=== PATIENT | male | born 1930 | race Caucasian/White ===

== ENCOUNTER 2017-06-24 09:12 | Outpatient (CLI) | payer MEDICARE, OTHER ==
--- NOTE | 2017-06-24 11:53 | ULT ---
RENAL ULTRASOUND: HISTORY: Acute cystitis with hematuria. COMPARISON: None. TECHNIQUE: Sagittal and transverse imaging was performed. FINDINGS: Bilaterally, no hydronephrosis. The right kidney measures 10.5 x 4.5 x 4.8 cm. The left kidney kolby ures 10.2 x 5.2 x 5 cm. In the lower pole left kidney there is a hypoechoic focus measuring 0.9 x 1 x 1 cm. Complex cyst versus solid lesion are differential considerations. The urinary bladder is unremarkable. IMPRESSION: Hypoechoic focus in the lower pole left kidney. Given the size of the lesion, a follow-up ultrasound in one year is recommended. POS: BALAJI
== END 2017-06-24 09:13 | disposition home or self-care (01) ==
LOC: ULT 09:12
PROVIDERS: ATTEND Urology
DX: N30.01 Acute cystitis with hematuria (principal); N28.89 Other specified disorders of kidney and ureter
CPT/HCPCS: 76770

== ENCOUNTER 2017-06-26 10:57 | Outpatient (CLI) | payer MEDICARE, OTHER ==
[2017-06-26 13:10] LABS: Anion Gap 12 mmol/L (10-20); BUN (Urea Nitrogen) 20 mg/dL (8.4-25.7); Calc. Creatinine Clearance 0 mL/min (70-130); Calcium 9.6 mg/dL (7.8-10.44); Carbon Dioxide 27 mmol/L (23-31); Chloride 105 mmol/L (98-107); Estimated GFR-MDRD 59; Glucose 91 mg/dL (83-110); Potassium 4.9 mmol/L (3.5-5.1); Sodium 139 mmol/L (136-145)
--- NOTE | 2017-06-27 19:08 | EKG ---
Test Reason : Blood Pressure : / mmHG Vent. Rate : 079 BPM Atrial Rate : 079 BPM P-R Int : 338 ms QRS Dur : 094 ms QT Int : 380 ms P-R-T Axes : 036 063 045 degrees QTc Int : 435 ms Electronic atrial pacemaker Anterior infarct , age undetermined Abnormal ECG When compared with ECG of 16-MAY-2016 06:33, Electronic atrial pacemaker has replaced Electronic ventricular pacemaker Confirmed by BRYANT FULTON, DR. Tejada ([id number]) on 06/27/2017 7:08:06 PM Referred By: EMANUEL Confirmed By:DR. Mallory HURTADO MD
== END 2017-06-26 10:58 | disposition home or self-care (01) ==
LOC: LABBT 10:57
PROVIDERS: ATTEND Specialist
DX: Z01.818 Encounter for other preprocedural examination (principal); K40.90 Unilateral inguinal hernia, without obstruction or gangrene, not specified as recurrent; R94.31 Abnormal electrocardiogram [ECG] [EKG]; Z95.0 Presence of cardiac pacemaker
CPT/HCPCS: 80048; 93005; 93010

== ENCOUNTER 2017-06-30 05:45 | Day surgery (SDC) | payer MEDICARE, OTHER ==
[2017-06-26 11:10] VITALS: BMI 23.7
[2017-06-30] MEDS ORDERED: Ketorolac Tromethamine 30 MG/ML VIAL ONE (06:12)
[2017-06-30] MEDS ORDERED: CEFAZOLIN/Water 2 GM/20 ML SYRINGE ONE (06:12)
[2017-06-30 06:24] LABS: #Basophils 0.1 thou/uL (0.0-0.2); #Eosinphils 0.2 thou/uL (0.0-0.7); #Monocytes 0.7 thou/uL (0.11-0.59); #Neutrophils 3.7 thou/uL (1.40-6.50); %Eosinophils 3.9 % (0.0-10.0); %Lymphocytes 17.5 % (21.0-51.0); %Monocytes 11.8 % (0.0-10.0); %Neutrophils 65.8 % (42.0-75.0); Hemoglobin 14.7 g/dL (14.0-18.0); Mean Corpuscular HGB CONC 33.3 g/dL (32.0-36.0); Mean Corpuscular Hemoglobin 30.2 pg (27.0-31.0); Mean Corpuscular Volume 90.7 fl (80.0-94.0); Mean Platelet Volume 6.8 fL (7.4-10.4); Platelet Count 140 thou/uL (130-400); RBC Distribution Width 13.5 % (11.5-14.5); Red Blood Cell (RBC) Count 4.87 mill/uL (4.70-6.10); White Blood Cell (WBC) Count 5.6 thou/uL (4.8-10.8)
[2017-06-30] MEDS ORDERED: Bupivacaine HCl 0.5%/Epinephrine 1:200,000/PF 30 ml Vial ONE (06:29)
[2017-06-30] MEDS ORDERED: Bupivacaine/Epinephrine 0.25% 30 ML VIAL ONE (06:46)
[2017-06-30] MEDS ORDERED: Fentanyl 250 MCG/5 ML VIAL ONE (07:25)
[2017-06-30] MEDS ORDERED: HYDROcodone/Acetaminophen 5/325 mg Tablet ONE (10:49)
--- NOTE | 2017-06-30 14:54 | OP ---
DATE OF PROCEDURE: 06/30/2017 PREOPERATIVE DIAGNOSIS: Left inguinal hernia. POSTOPERATIVE DIAGNOSIS: Left inguinal hernia, pantaloon. OPERATION PERFORMED: Left inguinal hernia repair with large mesh, patch and plug. SURGEON: Krishan Royal M.D. ANESTHESIA: General with laryngeal mask airway. INDICATIONS: The patient is an 87-year-old white male. He presents with an obvious left inguinal he rnia and is taken to the operating room at this time for repair. DESCRIPTION OF OPERATION: Informed consent was obtained. The patient was taken to the operating jordan m where general anesthesia was obtained with the patient in supine position. Abdomen and groin were prepped with ChloraPrep and draped in sterile fashion. Local anesthetic was infiltrated with 0.25% M arcaine with epinephrine. Oblique left inguinal incision was created and dissection was carried thro [facility] skin and subcutaneous tissue. Dissection was carried down to the fascia, which was opened parall el to its fibers, so as to open the external ring. Careful dissection was carried out within the ing uinal canal to isolate the spermatic cord, which was controlled with a Rivka drain. Dissection was carried out within the canal, which identified an obvious direct defect on the medial aspect of the inferior epigastric vessels. This is about a centimeter in diameter and there was a significant volu me of fatty tissue bulging through this. This was dissected circumferentially at its base and the co ntents were inverted. The defect was closed with 2 [id number] sutures of 2-0 Vicryl. There was also an obvious indirect hernia on the lateral aspect of the cord structures. This hernia sac was dissected free from cord structures and dissected back to its opening at the internal ring. A large mesh plug was obtained and the apex was secured to the apex of the hernia sac and the complex was inverted in the preperitoneal space and it was secured to surrounding fascia with 2 interrupted sutures of 2-0 Vicryl. Mesh patch was then obtained, trimmed to appropriate size, placed within the floor of the inguinal canal, and secured in place with 5 interrupted sutures of 2-0 Vicryl. The fasc ia was then closed with a running suture of 3-0 Vicryl and the remainder of the wound closed in layer s with 3-0 and 4-0 Monocryl suture. Additional local anesthetic was infiltrated during closure. Hollis mabond was placed externally. There were no complications. Patient tolerated the procedure well and was taken to recovery room in stable condition.
== END 2017-06-30 11:48 | disposition home or self-care (01) ==
LOC: SDC 05:45
PROVIDERS: ATTEND Specialist
PROC: 0YU60JZ Supplement Left Inguinal Region with Synthetic Substitute, Open Approach (ICD-10-PCS; principal; 2017-06-30)
DX: K40.90 Unilateral inguinal hernia, without obstruction or gangrene, not specified as recurrent (principal); I10 Essential (primary) hypertension; E78.00 Pure hypercholesterolemia, unspecified; Z79.82 Long term (current) use of aspirin; Z79.899 Other long term (current) drug therapy; Z87.891 Personal history of nicotine dependence; Z98.890 Other specified postprocedural states
CPT/HCPCS: 36415; 85025; C1781; J0131; J0670; J1885; J3010

== ENCOUNTER 2017-12-19 09:00 | Emergency (ER) | payer MEDICARE, OTHER ==
--- NOTE | 2017-12-19 09:49 | RAD ---
LEFT HAND 3 VIEWS: Date: 12/19/17 PROVIDED CLINICAL HISTORY: Left hand pain and swelling, status post injury. FINDINGS: There is no evidence for fracture or other acute osseous abnormality. If there is persistent clinical concern, conservative management and follow-up imaging are advised. IMPRESSION: As above. POS: BALAJI
== END 2017-12-19 10:48 | disposition home or self-care (01) ==
LOC: ERS 09:00
DX: M79.642 Pain in left hand (principal); E78.5 Hyperlipidemia, unspecified; F17.220 Nicotine dependence, chewing tobacco, uncomplicated; Z79.899 Other long term (current) drug therapy; Z79.82 Long term (current) use of aspirin

== ENCOUNTER → 2017-12-22 | Day surgery (SDC) | payer MEDICARE, OTHER ==
[2017-12-11 14:24] VITALS: BMI 24.6
[~2017-12-22] MED LIST: Bupivacaine 0.25% HCL 30 ML VIAL ONE; Bupivacaine/Epinephrine 0.25% 30 ML VIAL ONE; CEFAZOLIN/Water 2 GM/20 ML SYRINGE ONE; Fentanyl 100 MCG/2 ML VIAL ONE; Ketorolac Tromethamine 30 MG/ML VIAL ONE; Lidocaine 1% PF 5 ML VIAL ONE; Metoclopramide HCl 10 MG/2 ML VIAL ONE; Ondansetron HCl/PF 4 MG/2 ML Vial ONE; PROPOFOL 200 MG/20 ML VIAL ONE
--- NOTE | 2017-12-23 10:07 | OP ---
DATE OF PROCEDURE: 12/22/2017 PREOPERATIVE DIAGNOSIS: Right inguinal hernia. POSTOPERATIVE DIAGNOSES: Right inguinal hernia, indirect. OPERATION PERFORMED: Repair of indirect right inguinal hernia with mesh using a large mesh patch and plug. SURGEON: Krishan Royal M.D. ANESTHESIA: General endotracheal. INDICATIONS: The patient is an 87-year-old white male. He previously had a left inguinal hernia rep aired with good results. He subsequently developed a right inguinal hernia and he is taken to the op erating room at this time for repair. DESCRIPTION OF OPERATION: Informed consent was obtained. The patient is taken to the operating room where general endotracheal anesthesia obtained with the patient in supine position. Right inguinal area was trimmed of hair, prepped with ChloraPrep, and draped in sterile fashion. Local anesthetic w as infiltrated using 0.25% Marcaine with epinephrine and an oblique right inguinal incision was creat ed. Dissection was carried through skin and subcutaneous tissue. Dissection was carried down to the fascia which was opened parallel to its fibers so as to open the inguinal canal. The spermatic cord was dissected circumferentially and controlled with Rivka drain. The direct space was inspected a nd found to be without evidence of hernia. The cord was dissected and obvious indirect hernia sac wa s identified and dissected free from cord structures. It was dissected back to its opening at the in ternal ring. A large mesh plug was obtained and the apex was secured to the apex of the hernia sac a nd the complex was inverted in the preperitoneal space. It was secured in place with 2 interrupted s utures of 2-0 Vicryl. The mesh patch was obtained, trimmed to appropriate size, placed within the fl oor of the inguinal canal, and secured in place with several interrupted sutures of 2-0 Vicryl. The tails were of course secured lateral to the internal ring. The fascia was closed with a running sutu re of 3-0 Vicryl. Remainder of the wound closed in layers with 3-0 and 4-0 Monocryl. Dermabond was placed externally. Additional local anesthetic was infiltrated during closure. There were no compli cations. The patient tolerated the procedure well and was taken to recovery in stable condition.
== END ==
LOC: SDC 05:47
PROVIDERS: ATTEND Specialist
PROC: 0YU50JZ Supplement Right Inguinal Region with Synthetic Substitute, Open Approach (ICD-10-PCS; principal; 2017-12-22)
DX: K40.90 Unilateral inguinal hernia, without obstruction or gangrene, not specified as recurrent (principal); I10 Essential (primary) hypertension; E78.00 Pure hypercholesterolemia, unspecified; E11.9 Type 2 diabetes mellitus without complications; I48.91 Unspecified atrial fibrillation; Z87.891 Personal history of nicotine dependence; Z79.01 Long term (current) use of anticoagulants; Z79.84 Long term (current) use of oral hypoglycemic drugs; Z79.899 Other long term (current) drug therapy; Z95.5 Presence of coronary angioplasty implant and graft; Z95.2 Presence of prosthetic heart valve; Z98.890 Other specified postprocedural states
CPT/HCPCS: 49505; C1781; J0131; J1885; J2001; J2405; J2704; J2765; J3010; S0020

== ENCOUNTER 2018-03-18 08:41 | Emergency (ER) | payer MEDICARE, OTHER ==
--- NOTE | 2018-03-18 10:51 | ULT ---
RIGHT LOWER EXTREMITY VENOUS DOPPLER ULTRASOUND: DATE: 03/18/2018. COMPARISON: None. HISTORY: Swelling, edema, assess for DVT. TECHNIQUE: Multiplanar, mejia scale sonographic imaging of the venous structures of the right lower extremity obt ained with color flow and spectral analysis. FINDINGS: Right common femoral vein, greater saphenous vein, profunda femoral vein, femoral vein, popliteal vei n, and posterior tibial vein are patent. There is no evidence for deep venous thrombosis of the righ t lower extremity. There is a heterogeneously hypoechoic lesion measuring at least 4.2 x 2.8 x 4.9 cm in the poplitea l area. This heterogeneously hypoechoic lesion demonstrates no internal blood flow. There is a p robable linear band of decreased echogenicity extending from this into the calf. The most likely con sideration is a complex/hemorrhagic Mcelroy's cyst with rupture. IMPRESSION: No evidence for deep venous thrombosis of the right lower extremity. 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 Recommend followup imaging via ultrasound or MRI to document resolution. POS: BALAJI
== END 2018-03-18 11:03 | disposition home or self-care (01) ==
LOC: ERS 08:41
DX: S30.0XXA Contusion of lower back and pelvis, initial encounter (principal); S70.11XA Contusion of right thigh, initial encounter; M71.21 Synovial cyst of popliteal space [Baker], right knee; E78.5 Hyperlipidemia, unspecified; I48.91 Unspecified atrial fibrillation; Z87.891 Personal history of nicotine dependence; Z79.01 Long term (current) use of anticoagulants; Z79.899 Other long term (current) drug therapy; Z79.82 Long term (current) use of aspirin; X50.1XXA Overexertion from prolonged static or awkward postures, initial encounter

== ENCOUNTER 2018-03-24 10:35 | Outpatient (CLI) | payer MEDICARE, OTHER ==
[2018-03-24 11:57] LABS: Hemoglobin 13.2 g/dL (14.0-18.0); Mean Corpuscular Hemoglobin 31.1 pg (27.0-31.0); Mean Corpuscular Volume 91.6 fL (78.0-98.0); Mean Platelet Volume 7.2 fL (7.4-10.4); Platelet Count 178 thou/uL (130-400); RBC Distribution Width 12.7 % (11.5-14.5); Red Blood Cell (RBC) Count 4.24 mill/uL (4.70-6.10); White Blood Cell (WBC) Count 7.7 thou/uL (4.8-10.8)
[2018-03-24 12:13] LABS: Anion Gap 13 mmol/L (10-20); BUN (Urea Nitrogen) 20 mg/dL (8.4-25.7); Calc. Creatinine Clearance 0 mL/min (70-130); Calcium 9.4 mg/dL (7.8-10.44); Carbon Dioxide 25 mmol/L (23-31); Chloride 105 mmol/L (98-107); Estimated GFR-MDRD 65; Glucose 85 mg/dL (83-110); Potassium 4.3 mmol/L (3.5-5.1); Sodium 139 mmol/L (136-145)
--- NOTE | 2018-03-24 18:01 | EKG ---
Test Reason : Blood Pressure : / mmHG Vent. Rate : 062 BPM Atrial Rate : 062 BPM P-R Int : 000 ms QRS Dur : 096 ms QT Int : 414 ms P-R-T Axes : -10 069 074 degrees QTc Int : 420 ms Electronic atrial pacemaker with atrial pacing. 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
== END 2018-03-24 10:36 | disposition home or self-care (01) ==
LOC: LABBT 10:35
PROVIDERS: ATTEND Urology
DX: Z01.818 Encounter for other preprocedural examination (principal); R35.1 Nocturia; R35.0 Frequency of micturition; N40.1 Benign prostatic hyperplasia with lower urinary tract symptoms; N30.01 Acute cystitis with hematuria; R31.29 Other microscopic hematuria; N28.1 Cyst of kidney, acquired
CPT/HCPCS: 80048; 81001; 85027; 93005; 93010

== ENCOUNTER 2018-03-31 06:17 | Day surgery (SDC) | payer MEDICARE, OTHER ==
[2018-03-24 10:54] VITALS: BMI 23.7
[2018-03-31] MEDS ORDERED: Dexamethasone 4 mg/ml Vial ONE (07:35)
[2018-03-31] MEDS ORDERED: Levofloxacin 500 mg/D5W 100 ml Premix Bag ONE (07:35)
[2018-03-31] MEDS ORDERED: Fentanyl 100 MCG/2 ML VIAL ONE (09:42)
[2018-03-31] MEDS ORDERED: Furosemide 20 MG/2 ML VIAL ONE (10:46)
--- NOTE | 2018-03-31 17:12 | OP ---
DATE OF PROCEDURE: 03/31/2018 PREOPERATIVE DIAGNOSIS: BPH. POSTOPERATIVE DIAGNOSIS: BPH. PROCEDURE PERFORMED: GreenLight laser vaporization of the prostate with enucleation of the middle lobe. ANESTHESIA: General with laryngeal mask airway. FINDINGS: Adequate opening up of the prostatic urethra with enucleation of the middle lobe. Total of 73,817 joules were used COMPLICATIONS: No complications. BLOOD LOSS: Minimal. SPECIMEN: Prostate. DRAIN REMAININ-Sami two-way. INDICATIONS FOR PROCEDURE: The patient is an 88-year-old male who was followed in the office for BPH and elected to undergo definitive procedure as opposed to continuation of medications. DESCRIPTION OF PROCEDURE: The patient was brought into the room by Anesthesia, laid on the table in supine position. After receiving general anesthetic, his legs were placed in lithotomy position, and his perineum was prepped and draped in a sterile fashion. Using a 22.5-Sami cystoscope and a 30-degree lens, the urethra was traversed and the bladder was inspected. The ureteral orifices were identified and preserved throughout the case. The middle lobe and bladder neck were elevated, so the middle lobe was enucleated, and the chips were large enough that it did require a grasper to remove two of the chips. The rest were irrigated out. Power level of 80 was used at the bladder neck near the veru. A power level of 180 was used in the mid gland. When the scope was removed, good stream was noted. Scope was put back in. There was some oozing noted, so with the power level of 60, the prostatic bed was then vaporized for coagulative component, and so with minimal pressure or filling, there was no significant bleeding noted, so the scope was removed final time, and a 20-Sami catheter was placed to gravity. The patient tolerated the procedure well and was then awakened and transferred to PACU in stable condition. . Job ID: [id number] [facility]
[2018-03-31] MEDS ORDERED: Ondansetron PF 4 MG/2 ML Vial ONE (18:22)
== END 2018-03-31 12:48 | disposition home or self-care (01) ==
LOC: SDC 06:17
PROVIDERS: ATTEND Urology
PROC: 0V508ZZ Destruction of Prostate, Via Natural or Artificial Opening Endoscopic (ICD-10-PCS; principal; 2018-03-31)
DX: N40.1 Benign prostatic hyperplasia with lower urinary tract symptoms (principal); R35.0 Frequency of micturition; R35.1 Nocturia; R39.15 Urgency of urination; Q61.9 Cystic kidney disease, unspecified; I25.2 Old myocardial infarction; I10 Essential (primary) hypertension; E78.00 Pure hypercholesterolemia, unspecified; I25.10 Atherosclerotic heart disease of native coronary artery without angina pectoris; Z95.5 Presence of coronary angioplasty implant and graft; Z95.1 Presence of aortocoronary bypass graft; Z95.2 Presence of prosthetic heart valve; Z95.0 Presence of cardiac pacemaker; Z87.891 Personal history of nicotine dependence; Z79.01 Long term (current) use of anticoagulants; Z79.82 Long term (current) use of aspirin; Z79.899 Other long term (current) drug therapy; Z79.84 Long term (current) use of oral hypoglycemic drugs
CPT/HCPCS: 88305; J1100; J1940; J1956; J2405; J3010

== ENCOUNTER 2018-10-01 14:19 | Outpatient (CLI) | payer MEDICARE, OTHER ==
--- NOTE | 2018-10-01 15:08 | ULT ---
Bilateral renal ultrasound CLINICAL INDICATION: Complex cyst. COMPARISON: 06/24/2017 FINDINGS: Right kidney: There is no evidence of a renal mass, renal calculus, or hydronephrosis seen. The right kidney measures 9.4 cm in length. Left kidney: There is prominence of the cortex involving the midportion of the left kidney likely due to dromedary hump which is a normal variant. This is stable from prior exam. A 1.3 cm anechoic cystic structure is seen within the inferior pole left kidney which demonstrates sonographic characte ristics most compatible with a cyst. This is larger in size when compared to the prior exam, but features on today's examination suggest a simple cyst. No solid renal mass is seen, and there is no h ydronephrosis on the left.The left kidney measures 9.9 cm in length. Urinary bladder: Normal in appearance. IMPRESSION: Left renal cyst. A hypoechoic cystic structure was seen in this region on prior study in 2018. This c ystic structure is now larger in size but demonstrates characteristics most compatible with a simple cyst on today's exam. No solid renal mass is seen bilaterally.
== END 2018-10-01 14:20 | disposition home or self-care (01) ==
LOC: BICULT 14:19
PROVIDERS: ATTEND Urology
DX: N28.1 Cyst of kidney, acquired (principal)
CPT/HCPCS: 76770